=== PATIENT | female | born 1965 | race Caucasian/White ===

== ENCOUNTER → 2018-01-24 | Outpatient (CLI) | payer OTHER ==
[~2018-01-24] MED LIST: Advil200 M1 PO; CALCA500CH PO; IRON236 MG PO; METF500 PO; NAPR220 PO; NEOPOLHYDS AS; Norco 5-325 Ta1 EACH PO; TRIHYD5075 PO; VITAMENS; Zofran Odt4 MG SL; [UNRECOGNIZED DRUG - REMARK]
[2018-01-26 11:16] LABS: HPV Genotype 16 Not Detected (NOTDET); HPV Genotype 18 Not Detected (NOTDET)
[2018-01-27 13:51] LABS: HPV High Risk Other Not Detected (NOTDET)
[2018-01-30 12:30] LABS: Source VAG/CERVIX
== END | disposition home or self-care (01) ==
LOC: LAB 16:23 → LAB SHORT 16:23
PROVIDERS: Obstetrics & Gynecology
DX: Z01.419 Encounter for gynecological examination (general) (routine) without abnormal findings (principal)
CPT/HCPCS: 87624; G0123

== ENCOUNTER → 2019-01-31 | Outpatient (CLI) | payer BC ==
[2019-02-02 15:06] LABS: HPV 16 Negative (Negative); HPV 18 Negative (Negative); HPV OTHER HR TYPES Negative (Negative)
== END | disposition home or self-care (01) ==
LOC: LAB 15:59 → LAB SHORT 15:59
PROVIDERS: Obstetrics & Gynecology
DX: Z01.419 Encounter for gynecological examination (general) (routine) without abnormal findings (principal)
CPT/HCPCS: 87624; G0123

== ENCOUNTER → 2023-04-18 | Outpatient (CLI) | payer OTHER ==
[2023-04-20 15:09] LABS: HPV 16 Negative (Negative); HPV 18 Negative (Negative); HPV OTHER HR TYPES Negative (Negative)
== END ==
LOC: LAB SHORT 17:34 → LAB 17:34
PROVIDERS: Obstetrics & Gynecology
DX: Z01.419 Encounter for gynecological examination (general) (routine) without abnormal findings (principal)
CPT/HCPCS: 87624; G0145

== ENCOUNTER 2025-06-06 11:08 | Day surgery (SDC) | payer OTHER ==
[~2025-06-06] VITALS: Ht 167.6 cm; Wt 101.3 kg
[2025-06-06] MEDS ORDERED: HYDCHL25 (11:23)
[2025-06-06] MEDS ORDERED: LOSA50 (11:23)
[2025-06-06] MEDS ORDERED: ATOR10 (11:23)
[2025-06-06] MEDS ORDERED: VENL37.5ER (11:23)
[2025-06-06 13:51] VITALS: BP 113/83
== END 2025-06-06 13:54 | disposition home or self-care (01) ==
LOC: ORSCSDS 11:08
PROVIDERS: Internal Medicine Gastroenterology
PROC: 0DBK8ZX Excision of Ascending Colon, Via Natural or Artificial Opening Endoscopic, Diagnostic (ICD-10-PCS; principal; 2025-06-06 12:45)
DX: Z12.11 Encounter for screening for malignant neoplasm of colon (principal); Z86.0100 Personal history of colon polyps, unspecified; D12.2 Benign neoplasm of ascending colon; E11.9 Type 2 diabetes mellitus without complications; Z87.891 Personal history of nicotine dependence; Z79.84 Long term (current) use of oral hypoglycemic drugs; Z79.899 Other long term (current) drug therapy
CPT/HCPCS: 82947; 88305; J2704; J7120